=== PATIENT | female | born 1955 | race Caucasian/White ===

== ENCOUNTER 2020-05-21 15:40 | Outpatient (CLI) | payer OTHER, SELFPAY ==
--- NOTE | ~2020-05-21 | XR_ITS ---
XR foot LT min 3V DATE: 05/21/2020 16:09 INDICATION: Injury, metatarsal pain TECHNIQUE: 4 views COMPARISON: None FINDINGS: There is plantar enthesopathy and mild posterior calcaneal enthesopathy. There is hallux valgus and bunion deformity. There is osteoarthritis at the second metatarsophalangeal joint. No fracture or dislocation, periosteal reaction or bone destruction. 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
--- NOTE | ~2020-05-21 | XR_ITS ---
XR ankle LT 2V DATE: 05/21/2020 16:09 INDICATION: Injury TECHNIQUE: 2 views COMPARISON: None FINDINGS: No fracture or dislocation of the ankle or disruption of the ankle mortise. There is plant ar and minimal posterior calcaneal enthesopathy. IMPRESSION: No fracture or dislocation Plantar and minimal posterior calcaneal enthesopathy Reviewed, dictated and finalized at location A.
== END 2020-05-21 15:41 | disposition home or self-care (01) ==
LOC: ANHIMG 15:42
PROVIDERS: PCP Internal Medicine; Visit Provider Internal Medicine
DX: M20.12 Hallux valgus (acquired), left foot (principal); M19.072 Primary osteoarthritis, left ankle and foot; M77.32 Calcaneal spur, left foot
CPT/HCPCS: 73600; 73630

== ENCOUNTER 2021-03-25 16:52 | Emergency (ER) | payer OTHER, SELFPAY ==
--- NOTE | 2021-03-25 16:59 | ED.GENADULT ---
HPI - General Adult General Chief complaint: Urogenital-Female Stated complaint: uti Source: patient Mode of arrival: ambulatory Limitations: no limitations History of Present Illness HPI narrative: 65 y/o female. PMH includes: HTN, HLD, Current everyday cigarette smoker. Presents to [facility] today with acute complaints of dysuria, 'dark' urine, fever, chills, sweats, and RT Flank pain at home. Manifestations have been worsening in the past 24-48 hours. She arrives febrile with oral Temp of 101.4, as well as tachycardic. Client denies diffuse abdominal pain, pelvic pain, vaginal discharge. No history of nephrolithiasis. She is not diabetic. -She denies additional acute complaints of illness upon exam. Related Data Allergies Allergy/AdvReac Type Severity Reaction Status Date / Time No Known Allergies Allergy Verified 03/25/21 17:06 Review of Systems Review of Systems: Narrative: CONSTITUTIONAL: Positive fever, chills, sweats. EYES: Denies visual changes, redness, discharge. ENT: Denies rhinorrhea, congestion, sore throat, otalgia. CARDIOVASCULAR: Denies chest pain, palpitations, edema. RESPIRATORY: Denies dyspnea, wheezing, cough GASTROINTESTINAL: LLQ abdominal pain, nausea. No vomiting, diarrhea. GENITOURINARY: dysuria, dark urine. LT Flank pain. No hematuria, abnormal discharge SKIN: Denies rash or itching. MUSCULOSKELETAL: Denies acute back pain, joint pain, or myalgia. NEUROLOGIC: Denies numbness, or focal weakness. PSYCHIATRIC: Denies anxiety or depression. All systems reviewed & are unremarkable except as noted in HPI and below PMFSH Past Medical History Medical History Acid reflux delivery delivered 1986 Full term male 7lbs 11oz Gastrointestinal distress History of miscarriage 1977 Female Left kidney mass Surgical History Surgical History H/O dilation and curettage History of colposcopy [place] teeth removed Social History Social History Years smoked: 45 Alcohol intake: current Drinks per week: 8 Substance use: never Gender identity (if verbalized by the patient): Female Sexual Orientation (if Verbalized by the Patient): Straight or Heterosexual Exam Narrative: Exam Narrative: GENERAL: This is a well-nourished, well-developed patient, but appears to feel ill. HEAD: normocephalic, atraumatic. EYES: PERRL. Sclera clear/white. EARS: External ears normal. NOSE: External nose normal. THROAT: Mucous membranes moist. CARDIOVASCULAR: Regular rate and rhythm without murmurs, gallops, or rubs. RESPIRATORY: Clear to auscultation. Breath sounds equal bilaterally. No wheezes, rales, or rhonchi. GASTROINTESTINAL: Abdomen soft. Bowel sounds are active. No hepato-splenomegaly, or palpable masses. Positive LLQ & LT CVA tenderness, with guarding. SKIN: warm, intact with no suspicious lesions or rash, good texture and turgor. NEURO: awake, alert, and oriented to person, place and time. There were no obvious focal neurologic abnormalities. Course Transfer Transfered to: [place] ([facility] to ER ) Transportation: Other (Personal Vehicle: Pt choice) Transfer rationale: Suspect acute Pyelonephritis or other intra-abdominal infection source: Need for higher resources, to include laboratory studies, CT imaging, ect. Accepting physician: MD Pankaj Lyles Medical Decision Making [facility] Narrative Medical decision making narrative: -Febrile, tachycardic, but remains normotensive. -Urine Dipstick with positive Nitrites, 3+ Leukocytes. -Suspect acute pyelonephritis, or possibly other intra-abdominal infectious sources. -This patient requires resources that are not available here at [facility] (CT, CHEM 12, IV therapies, ect), and will be transferred to [facility] ER for this reason. -Case reviewed with provider
[2021-03-25 17:00] VITALS: BP 136/89; PULSE 106; RESP 18; TEMP 38.6; O2SAT 97
[2021-03-25 17:33] VITALS: TEMP 38.6
[2021-03-25] MEDS: ACETAMINOPHEN 500 MG TABLET 1000 MG PO (17:33)
== END 2021-03-25 17:45 | disposition short-term general hospital (02) ==
PROVIDERS: Emergency Provider Nurse Practitioner Adult Health; PCP Internal Medicine
DX: R50.9 Fever, unspecified (principal); R10.32 Left lower quadrant pain; N10 Acute pyelonephritis; K21.9 Gastro-esophageal reflux disease without esophagitis; E78.5 Hyperlipidemia, unspecified; I10 Essential (primary) hypertension; F17.210 Nicotine dependence, cigarettes, uncomplicated
CPT/HCPCS: 81003; 99213; A9270; G0463

== ENCOUNTER 2021-03-25 17:54 | Emergency (ER) | payer OTHER, SELFPAY ==
[2021-03-25 18:23] VITALS: BP 144/84; PULSE 99; RESP 18; TEMP 38; O2SAT 100
[2021-03-25 18:38] LABS: Basophils Absolute Auto 0.1 K/mm3 (0.0-0.1); Basophils Percent Auto 0.5 % (0.2-1.2); Eosinophils Absolute Auto 0.2 K/mm3 (0-0.3); Eosinophils Percent Auto 1.3 % (0-4.4); Hematocrit 40.9 % (37.0-47.0); Hemoglobin 13.4 g/dL (12.0-15.0); Immature Granulocyte Absolute 0.08 K/mm3 (0.00-0.031); Immature Granulocyte Percent A 0.6 % (0-0.5); Immature Platelet Fraction Pct 2.7 % (0.9-11.2); Lymphocytes Absolute Auto 1.02 K/mm3 (0.9-3.2); Lymphocytes Percent Auto 7.9 % (18.3-44.2); Mean Corpuscular HGB Conc 32.8 g/dl (32-36); Mean Corpuscular Hemoglobin 31.8 pg (26-34); Mean Corpuscular Volume 96.9 fl (80-100); Monocytes Absolute Auto 0.4 K/mm3 (0.1-0.6); Monocytes Percent Auto 2.7 % (2.6-8.5); Neutrophils Absolute Auto 11.2 K/mm3 (1.3-6.7); Red Blood Count 4.22 M/mm3 (4.2-5.4); Red Cell Distribution Width 14.1 % (11.5-14.5); White Blood Count 12.9 K/mm3 (4.5-10.0)
[2021-03-25 18:46] LABS: Alanine Aminotransferase 21 U/L (4-35); Albumin Level 4.1 g/dL (3.5-5.1); Alkaline Phosphatase 84 U/L (38-126); Anion Gap 8 mmol/L (8-16); Aspartate Amino Transferase 24 U/L (14-36); Bilirubin,Total 0.9 mg/dL (0.2-1.3); Blood Urea Nitrogen 27 mg/dL (7-17); Calcium 9.1 mg/dL (8.4-10.2); Carbon Dioxide 27 mmol/L (22-30); Chloride 104 mmol/L (98-107); Estimated CRCL calculation 47 ml/min; Estimated Glomerular Filt Rate 41; Glucose 105 mg/dL (65-105); Lipase 49 U/L (23-300); Potassium 4.6 mmol/L (3.4-5.0); Sodium 139 mmol/L (137-145)
[2021-03-25 19:07] LABS: Add Urine Microscopic? YES; Appearance Urine Cloudy (Clear); Bacteria Urine 4+ /hpf; Bilirubin Urine Negative (Negative); Blood Urine 2+ (Negative); Color Urine Yellow (Yellow); Glucose Urine UA Negative (Negative); Ketones Urine Negative (Negative); Leukocyte Esterase Ur 3+ LEU/UL (Negative); Mucus Urine Rare /lpf; Nitrate Urine Negative (Negative); Protein Urine 2+ mg/dL (Negative); Specific Grav Ur 1.021 (1.001-1.035); Squamous Epithelial Cell Urine Few /hpf (Few); Urobilinogen Urine Negative mg/dL (<2.0); WBC Urine >75 /hpf
--- NOTE | 2021-03-25 19:54 | ED.GENADULT ---
HPI - General Adult General Chief complaint: Back Pain/Injury Stated complaint: poss pyelonephritis, from urgent care Time Seen by Provider: 03/25/21 19:34 Source: patient History of Present Illness HPI narrative: Patient is a 65 y/o female complaining of left back pain starting yesterday. She describes her pain as a dull ache and rates it as 5/10. Her pain radiates to lower abdomen. She took Tylenol, which provides some relief. She also has some fever and chills. She has no vomiting or dysuria. Related Data Allergies Allergy/AdvReac Type Severity Reaction Status Date / Time No Known Allergies Allergy Verified 03/25/21 17:06 Review of Systems Constitutional: Constitutional: Reports chills, Reports fever(s), Denies headache(s) and Denies weakness Eyes: Eyes: Denies blurry vision ENT: Denies headache(s) and Denies neck pain Cardiovascular: Cardiovascular: Denies chest pain and Denies dyspnea Respiratory: Respiratory: Denies cough and Denies dyspnea Gastrointestinal: Gastrointestinal: Denies abdominal pain, Denies diarrhea, Denies nausea and Denies vomiting Genitourinary: Genitourinary: Denies hematuria and Denies dysuria Musculoskeletal: Musculoskeletal: Reports back pain and Denies neck pain Neurologic: Denies headache(s) and Denies weakness PMFSH Past Medical History Medical History Acid reflux delivery delivered 1986 Full term male 7lbs 11oz Gastrointestinal distress History of miscarriage 1977 Female Left kidney mass Surgical History Surgical History H/O dilation and curettage History of colposcopy [place] teeth removed Social History Social History Years smoked: 45 Alcohol intake: current Drinks per week: 8 Substance use: never Gender identity (if verbalized by the patient): Female Exam Const: General: no acute distress and well developed Orientation/consciousness: oriented to person, oriented to place, oriented to time and patient oriented x3 HENMT: Head: normocephalic Ears: external ears normal General nose exam: Normal external nose present Eyes: General: appearance normal, both eyes and all related structures Conjunctivae: conjunctivae normal Neck: Neck: normal visual inspection and full ROM Chest: Chest palpation & inspection: normal inspection of the chest and no tenderness Resp: Effort & Inspection: normal respiratory effort Auscultation: clear to auscultation bilaterally Cardio: Rate: regular rate Rhythm: regular rhythm GI: GI Palp: No abdominal tenderness and Yes Soft to palpation Skin: General skin exam: normal color and turgor normal Neuro: General: oriented to person, oriented to place, oriented to time and patient oriented x3 Cognition (Neuro): normal cognition Extrem: General: normal to inspection, full ROM and no pedal edema Psych: Appearance: grossly normal Mental Status: mental status grossly normal Affect: normal affect Course Reevaluation(s) Reevaluation #1: Offered patient possible admission for IV antibiotics. However, patient declined and preferred to be discharged. Date: 03/25/21 Vital Signs Vital signs: Vital Signs Temperature 38.0 C H 03/25/21 18:23 Pulse Rate 99 03/25/21 18:23 Respiratory Rate 18 03/25/21 18:23 Blood Pressure 144/84 H 03/25/21 18:23 Pulse Oximetry 100 03/25/21 18:23 Temperature 37.2 C 03/25/21 21:07 Pulse Rate 98 03/25/21 21:07 Respiratory Rate 18 03/25/21 21:07 Blood Pressure 148/80 H 03/25/21 21:07 Pulse Oximetry 100 03/25/21 21:07 Medical Decision Making Vital Signs Vital Signs: Vital Signs Temperature 38.0 C H 03/25/21 18:23 Pulse Rate 99 03/25/21 18:23 Respiratory Rate 18 03/25/21 18:23 Blood Pressure 144/84 H 03/25/21 18:23 Pulse Oximetry 100 03/25/21 18:23 Temperature 37.2 C
[2021-03-25 20:10] LABS: Lactic Acid Reflex 0.8 mmol/L (0.7-2.1)
[2021-03-25] MEDS: SODIUM CHLORIDE 0.9% IV 1,000 ML 999 ML IV CONT (20:37)
[2021-03-25 21:07] VITALS: BP 148/80; PULSE 98; RESP 18; TEMP 37.2; O2SAT 100
== END 2021-03-25 21:08 | disposition home or self-care (01) ==
PROVIDERS: Family Medicine; Emergency Provider Emergency Medicine; PCP Internal Medicine
DX: N12 Tubulo-interstitial nephritis, not specified as acute or chronic (principal); K21.9 Gastro-esophageal reflux disease without esophagitis
CPT/HCPCS: 36415; 80053; 81001; 83605; 83690; 85025; 85055; 87040; 87077; 87086; 87088; 87186; 96365; 99284; J0696; J7030

== ENCOUNTER 2021-06-16 15:21 | Outpatient (CLI) | payer OTHER, SELFPAY ==
--- NOTE | ~2021-06-16 | CT_ITS ---
EXAMINATION: CT lung screening DATE: 06/16/2021 15:38 INDICATION: Personal history of tobacco dependence, current smoker with 45 pack year history TECHNIQUE: Computed tomography (CT) of the chest was performed without intravenous contrast. The dose -length product (DLP) was 134.73 mGy-cm. 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 COMPARISON: 06/10/2018 FINDINGS: Again noted are multiple stable noncalcified pulmonary nodules with upper lobe predominance measuring up to 5 mm. Calcified pulmonary nodules and calcified bilateral hilar lymph nodes are cons istent with old granulomatous disease. No new pulmonary nodules are identified. The lungs are free of acute opacities. There is no pleural effusion or pneumothorax. No pathologically enlarged thoracic l ymph nodes are identified. The heart size is normal. Calcified coronary artery atherosclerosis is not ed. There is moderate lumbar spondylosis. There is a 9 mm cyst of the liver. Scarring is noted in the upper pole of the right kidney. IMPRESSION: 1. Lung-RADS category 2: Benign appearance or behavior. Continue annual screening with noncontrast lo w-dose chest CT in 12 months. Reviewed, dictated and finalized at location B. IMPRESSION: 1. Lung-RADS category 2: Benign appearance or behavior. Continue annual screeni ng with noncontrast low-dose chest CT in 12 months.
== END 2021-06-16 15:22 | disposition home or self-care (01) ==
PROVIDERS: PCP Internal Medicine; Visit Provider Internal Medicine
DX: Z12.2 Encounter for screening for malignant neoplasm of respiratory organs (principal); Z87.891 Personal history of nicotine dependence
CPT/HCPCS: 71271

== ENCOUNTER 2022-11-30 07:42 | Outpatient (CLI) | payer OTHER, SELFPAY ==
--- NOTE | ~2022-11-30 | CT_ITS ---
EXAMINATION: CT lung screening DATE: 11/30/2022 08:06 INDICATION: Lung cancer screening. TECHNIQUE: Computed tomography (CT) of the chest was performed without intravenous contrast. The dose -length product was 125.81 mGy-cm. Automated exposure control and iterative reconstruction technique were employed. COMPARISON: CT dated 06/16/2021 and 11/09/2016 FINDINGS: No mediastinal or hilar lymphadenopathy. There are calcified pulmonary nodules and mediasti nal/hilar lymph nodes, consistent with chronic granulomatous disease. There are calcified granulomas of the spleen. No significant pleural or pericardial effusion. There is right renal atrophy. There is a nonobstructing right renal stone. Mild emphysema. No significant change to scattered bilateral pul monary nodules with upper lobe predominance. No new pulmonary nodules or masses. Nodules measure 3 mm or less. There is moderate thoracolumbar spondylosis. No focal lytic or blastic lesions. IMPRESSION: 1. Lung-RADS category 2: Benign appearance or behavior. Continue annual screening with noncontrast lo w-dose chest CT in 12 months. Reviewed, dictated and finalized at location L. [employer] IMPRESSION: 1. Lung-RADS category 2: Benign appearance or behavior. Continue annual screeni ng with noncontrast low-dose chest CT in 12 months.
== END 2022-11-30 07:43 | disposition home or self-care (01) ==
PROVIDERS: PCP Internal Medicine; Visit Provider Nurse Practitioner Family
DX: Z12.2 Encounter for screening for malignant neoplasm of respiratory organs (principal); F17.210 Nicotine dependence, cigarettes, uncomplicated
CPT/HCPCS: 71271

== ENCOUNTER 2023-01-20 08:29 | Outpatient (CLI) | payer MEDICARE, SELFPAY ==
--- NOTE | ~2023-01-20 | MM_ITS ---
EXAMINATION: MM screening [facility] BI w [facility] HISTORY: Screening mammogram TECHNIQUE: Craniocaudal and mediolateral oblique 3-D tomosynthesis images were obtained and synthetic 2-D images were generated. CAD analysis was submitted and interpreted. COMPARISON: 10/21/2017 and 01/08/2014 BREAST PARENCHYMAL COMPOSITION:There are scattered areas of fibroglandular density. FINDINGS: Benign appearing mass in the inner right subareolar region is present, minimally increased in size since 2018. No suspicious mass, calcification, or architectural distortion are identified in either breast to suggest malignancy. There has been no suspicious interval change. IMPRESSION: No mammographic evidence of malignancy. Recommend routine screening mammography in one year. BI-RADS Category 2: Benign finding(s). Reviewed, dictated and finalized at location .
== END 2023-01-20 08:30 | disposition home or self-care (01) ==
PROVIDERS: PCP Internal Medicine; Visit Provider Nurse Practitioner Family
DX: Z12.31 Encounter for screening mammogram for malignant neoplasm of breast (principal)
CPT/HCPCS: 77063; 77067

== ENCOUNTER 2023-10-20 08:49 | Outpatient (CLI) | payer MEDICARE, SELFPAY ==
--- NOTE | ~2023-10-20 | DEXA_ITS ---
Bone Density Report Name: DAVIDSON ARAGON Age: 67 Sex: Female Ethnicity: White Date of : 1955 Indication: osteopenia; height loss; postmenopausal Referring Provider: CJ VERDE Study: Bone densitometry was performed. Exam Date: October 20, 2023 Accession number: [id number] Bone Density: Region BMD T-score Z-score Classification AP Spine(L1-L4) 0.962 -0.8 1.1 Normal Femoral Neck (Left) 0.652 -1.8 -0.2 Osteopenia Total Hip (Left) 0.754 -1.5 -0.3 Osteopenia Femoral Neck (Right) 0.556 -2.6 -1.1 Osteoporosis Total Hip (Right) 0.708 -1.9 -0.6 Osteopenia Total Hip Mean 0.731 -1.7 -0.5 Osteopenia World Health Organization criteria for BMD impression classify patients as: Normal (T-score at or above -1.0), Osteopenia (T-score between -1.0 and -2.5), or Osteoporosis (T-score at or below -2.5). 10-year Fracture Risk: FRAX not reported because: Some T-score for Spine Total or Hip Total or Femoral Neck at or below -2.5 Previous Exams: Region Exam Age BMD T-score BMD Change BMD Change Date g/cm2 vs Baseline vs Previous AP Spine (L1-L4) 10/20/2023 67 0.962 -0.8 0.053 (5.8%)* 0.053 (5.8%)* 10/21/2017 61 0.910 -1.2 Total Hip(Left) 10/20/2023 67 0.754 -1.5 -0.024 (-3.0%) -0.024 (-3.0%) 10/21/2017 61 0.778 -1.3 Total Hip(Right) 10/20/2023 67 0.708 -1.9 -0.008 (-1.1%) -0.008 (-1.1%) 10/21/2017 61 0.716 -1.8 *Denotes significance at 95% confidence level, LSC for AP Spine = 0.022 g/cm2, LSC for Total Hip = 0.027 g/cm2 Clinical Information Provided by Patient: Smokes Patient maximum height was 68 Menopause Age: 42 No regular weight bearing exercise Drinks caffeinated beverages Onset of menses at age 14 Number of children 1 Impression: The patient has osteoporosis, based on the Right Femoral Neck T-score. The patient has risk factors, including: smoking. No significant bone loss was observed. Discussion: INCREASED RISK OF FRACTURE. BONE DENSITY IS UNDESIRABLY LOW AT ONE OR MORE SKELETAL SITES, CONSISTENT WITH POSTMENOPAUSAL OSTEOPOROSIS. This patient's lowest T-score meets the World Health Organization's (WHO) criteria for osteoporosis at one or more sites (T-score -2.5 or below). In untreated patients, the risk of osteoporotic fracture increases approximately two-fold for each 1.0 SD decrease in T-score. Low bone density is not the only risk factor for fracture; also consider factors such as patient's age, frail
== END 2023-10-20 08:50 | disposition home or self-care (01) ==
PROVIDERS: PCP Nurse Practitioner Family; Visit Provider Nurse Practitioner Family
DX: M81.0 Age-related osteoporosis without current pathological fracture (principal); Z13.820 Encounter for screening for osteoporosis; M85.852 Other specified disorders of bone density and structure, left thigh; M85.851 Other specified disorders of bone density and structure, right thigh
CPT/HCPCS: 77080

== ENCOUNTER 2023-11-29 10:47 | Outpatient (RCR) | payer MEDICARE, SELFPAY ==
--- NOTE | 2023-11-29 11:50 | OPREHPOC ---
Outpatient Therapy Plan of Care This is a Multidisciplinary Plan of Care that may contain components documented by all disciplines (PT, OT, and ST.) PT Problem 1 PT Problem #1 Knowledge Deficit PT Goal 1 Goal 1* indep with HEP 2* good safety awareness PT Problem 2 PT Problem #2 Impaired Vestibular Syste PT Goal 1 Goal improve mobility and safety; pt perform without any vestibular symptoms: 1* roll over in bed 2* supine to sit transfer 3* Dizziness Handicap Index score of 4% limitation in activity
--- NOTE | 2023-11-29 11:50 | PTOPEVAL1 ---
Assessment and note entered by Keely Estes, PT Evaluation Information Assessment Status Evaluation Diagnosis dizziness, giddiness Onset Oct 29, 2023 Subjective Information onset of dizziness with getting up out of bed one morning; took about 20 minutes to feel better and get up out of bed, nauseated; have meclazine, only took a few times, not sure it helped; symptoms: waves of motion even though I am still; decrease symptoms; ease with few seconds of holding still; Increase symptoms: with rolling over in bed; lie back at dentist chair Reported Pain Level Pain Score 0: Self Report Assessment PT Clinical Summary Kateryna has the diagnosis of dizziness/ BPPV. She reports a history of dizziness in the past and constant ringing in her ears. She has not had her hearing checked. Symptoms increase with supine to sit and rolling over in bed. Self assessment with Dizziness Handicap Index is 20% limitation. With the evaluation: she has BPPV of anterior/ posterior canal with [place] Bernardo Copiah testing to R. With Eply maneuver/canalith repositioning her BPPV was cleared. Education provided for vestibular system, post Eply maneuver, BPPV and Evan Josue for self clearing. Skilled PT services are indicated for further vestibular/ BPPV treatment and education to decrease her symptoms and improve her mobility. Plan of Care Interventions Neuro Re-education,Patient Education, Therapeutic Activities,Therapeutic Exercise,Self- Care/Home Management PT Services Indicated Yes Treatment Frequency and 1-2x/week for 8 visits Duration These treatments will address the objective and functional deficits as defined above. The patient will be advanced safely and appropriately in order for the patient to progress towards his/her prior level of function. Additional exercises will be introduced and as well as a comprehensive home exercise program upon discharge, if needed, ?to ensure carryover of functional gains achieved in the clinic. This treatment plan has been reviewed and agreement upon by the patient.
--- NOTE | 2023-12-30 15:28 | PTOPDC ---
Assessment and note entered by Keely Estes, PT Discharge Information Assessment Status Discharge - Pt Not Present Diagnosis dizziness, giddiness Onset Oct 29, 2023 Assessment PT Clinical Summary Kateryna received the PT evaluation and did not return for any further treatment. Discharge PT services. The goals were not addressed. Plan of Care PT Services Indicated No
== END 2024-01-02 08:18 | disposition home or self-care (01) ==
LOC: ANHPT 10:47
PROVIDERS: PCP Nurse Practitioner Family; Visit Provider Nurse Practitioner Family
DX: H81.11 Benign paroxysmal vertigo, right ear (principal)
CPT/HCPCS: 95992; 97161; 97530

== ENCOUNTER 2023-12-27 10:11 | Outpatient (CLI) | payer MEDICARE, SELFPAY ==
--- NOTE | 2023-12-29 15:41 | WPDHOLTEREM ---
Holter/Event Monitor Holter/Event Monitor Date of procedure: 12/27/23 Holter/Event Procedure: 48 Hr Holter Monitor Indications: Palpitations Conclusion: 1. 48 hour holter monitor on 12/27/23. 2. Underlying rhythm is sinus rhythm. HR range 60-111 bpm; average HR 77 bpm. 3. There are 21 premature supraventricular complexes and 2 supraventricular couplets. NO supraventricular tachycardia. 4. There are 303 premature ventricular complexes, 2 ventricular couplets, 1 ventricular triplet and 17 ventricular trigeminy. No ventricular tachycardia. 5. No sinoatrial or atrioventricular blocks. No significant pauses greater than seconds. 6. No symptoms available for correlation.
== END 2023-12-27 10:12 | disposition home or self-care (01) ==
PROVIDERS: PCP Nurse Practitioner Family; Visit Provider Nurse Practitioner Family
DX: R00.2 Palpitations (principal)
CPT/HCPCS: 93225; 93226

== ENCOUNTER 2024-11-27 07:47 | Outpatient (CLI) | payer MEDICARE, SELFPAY ==
--- OUTSIDE RECORDS SUMMARY | 2024-11-27 07:53 | XMS_ITS | Clinical Summary ---
Author Organization [facility] Address [address] [place] [address] Phone Care Team Providers Care Outside Food Server Name Role Phone Unavailable Primary Care Provider Unavailabl e Social History Tobacco Use Types Packs/Day Years Used Date Smoking Tobacco: Never Assessed Comments Unknown Sex and Gender Information Value Date Recorded Sex Assigned at Not on file Legal Sex Female 7:39 PM [employer] Gender Identity Not on file Sexual Orientation Not on file Plan of Treatment Health Maintenance Due Date Last Done Comments DEXA Bone Density 1955 Hepatitis C Virus (HCV) Screening 1955 TdaP Immunization 1955 Colonoscopy 2002 Colorectal Cancer Screening 2002 Cologuard 12/10/2007 Immunochemical Fecal Occult Blood 12/10/2007 Mammogram 12/10/2007 Pneumococcal Immunization (5 0+ years) (1 of 1 - PCV) 12/10/2007 Zoster Immunization (1 of 2) 12/10/2007 Influenza Immunization (#1) 2024 SARS-COV-2 Immunization ( season) 2024 07/17/2021, 01/13/2021, 12/16/2020 Respiratory Syncytial Virus (RSV) Immunization (Adult) (1 - 1-dose 75+ series) 2032 Hepatitis B Immunization Aged Out No longer eligible based on patient's age to complete this topic Meningococcal Immunization (ACWY) Aged Out No longer eligible b ased on patient's age to complete this topic Rotavirus Immunization Aged Out No lo nger eligible based on patient's age to complete this topic
--- NOTE | 2024-12-18 19:16 | WPDSLEEPSTUD ---
Sleep Study Date of Study: 11/27/24 Ordering Provider: Jessica Soto APRN Interpreting Physician: Karen Treviño DO Sleep Study Type: CPAP Titration Height: 1.7 m Weight: 72.575 kg Body Mass Index: 25.0 Neck Circumference (inches): 15 [place]: 3 Reason for Sleep Study Previously diagnosed severe sleep apnea in 2008. Re-evaluation of sleep apnea after weight loss Sleep History The patient is a 68-year-old female who had severe sleep apnea diagnosed 15 years ago. The patient had a sleep study ordered for re-evaluation of sleep apnea after significant weight loss. The patient frequently snores, and she snores loud enough that others complain. She rarely has trouble sleeping when she has a cold. She denies waking up gasping for air throughout the night. She frequently has breathing problems at night observed by herself or others. She rarely sweats excessively at night. She rarely has heart palpitations or irregular heartbeats throughout the night. She rarely falls asleep during the day. She denies falling asleep while driving. She denies cataplexy and sleep paralysis. She rarely has trouble at school or work due to sleepiness. She rarely experiences vivid dreamlike scenes upon awakening or falling asleep. She denies feeling afraid of going to sleep. She rarely has nightmares. She occasionally remembers her dreams. She rarely has thoughts racing through her mind. She rarely feels sad or depressed. She occasionally has anxiety. She constantly has muscular tension. She frequently notices parts of her body jerk. She frequently kicks during the night. She frequently has crawling and aching feelings in her legs and frequently has leg pain during the night. She rarely grinds her teeth during sleep and rarely awakens with morning jaw pain. She rarely is bothered by pain during the day and is rarely awakened by pain during the night. She frequently wakes up feeling sick in the morning. She is occasionally awakened by sore or aching muscles. She occasionally wakes up with pain in the neck, spine, and other joints. She goes to bed at 8:30 p.m. on both weekdays and weekends. It takes her 5 to 15 minutes to fall asleep. She wakes up 2 to 3 times throughout the night to urinate and get a drink. She is able to fall back asleep within 5 to 10 minutes. She wakes up at 6:30 a.m. on both weekdays and weekends. She typically gets 6 to 8 hours of sleep per night. She stays in bed for 10 to 15 minutes after waking up in the morning. She currently lives with her . She denies consuming any caffeinated beverages within 2 hours of bedtime. She denies engaging in physical exercise before bedtime. She will read and watch television before falling asleep. She denies taking naps in the afternoon or the evening. She consumes 2 to 3 caffeinated beverages per day at least twice per week. She smokes 4 cigarettes per day. She consumes alcoholic beverages during the day. She denies recreational drug use. [facility] Past Medical History Medical History History of miscarriage 1977 Female delivery delivered 1986 Full term male 7lbs 11oz Acid reflux Gastrointestinal distress Left kidney mass Surgical History Surgical History H/O dilation and curettage [place] teeth removed History of colposcopy Social History Social History Smoking packs per day: 0.25 Smoking cigarettes per day: 5.0 Years smoked: 45 Smoking pack-years: 11.25 Smoking status: Current every day smoker Tobacco type: cigarettes Second hand tobacco smoke exposure: Yes Alcohol intake: current Drinks per week: 10 Substance use: never Substance use type: does not use Do You Feel Safe in your Home?: Yes Lack of Transportation: No Lack of Food: Never True Current Housing: I Have Housing Concerned About Future Housing: No Difficulty Paying Gas/Electric Bills: No Difficulty Paying for Meds: No Currently Unemployed: No Education: High School Diploma/GED Difficulty w/ Childcare or Family Care: No Living arrangements: with family Occupation/Education: occupation Gender identity (if verbalized by the patient): Female Sexual Orientation (if Verbalized by the Patient): Straight or Heterosexual Spiritual care concerns: No Agree to blood products: Yes Medications Home Medications ?Medication ?Instructions ?Recorded ?Confirmed ?Type omeprazole 20 mg capsule,delayed 20 mg PO DAILY PRN 01/28/23 09/12/24 History release fluticasone propionate 50 2 spray intranasal DAILY #16 mL 11/17/23 09/12/24 Rx mcg/actuation nasal spray,suspension (Flonase Allergy Relief) loratadine 10 mg tablet (Claritin) 10 mg PO DAILY #30 tabs 12/06/23 09/12/24 Rx atorvastatin 10 mg tablet See Rx Instructions .Route 09/12/24 09/12/24 Rx .COMPLEX #90 tabs bupropion HCl 300 mg 24 hr tablet, 300 mg PO QAM #90 tabs 09/12/24 09/12/24 Rx extended release semaglutide 2 mg/dose (8 mg/3 mL) 2 mg (0.75 mL) subcut WEEKLY #9 mL 09/12/24 09/12/24 Rx subcutaneous pen injector (Ozempic) zolpidem 10 mg tablet (Ambien) 10 mg PO QHS #1 tablet 11/27/24 Rx Sleep Procedure A full night CPAP Titration using the [employer] multi-channel system recorded the standard physiologic parameters including EEG, EOG, submentalis EMG, anterior tibialis EMG, EKG, body position, nasal and oral airflow using nasal pressure sensor and thermistor.? Respiratory parameters of chest and abdominal movements were recorded with Respiratory Inductance Plethysmography belts. Oxygen saturation was recorded by pulse oximetry. Video monitoring was also performed. Sleep stages, periodic limb movements, and EEG arousals were scored in 30 second epochs according to the criteria of the AASM Scoring Manual. The Apnea-Hypopnea Index was calculated using CMS guidelines for definition of hypopnea with 4% O2 desaturations while scoring respiratory events. Sleep Architecture The total recording time was 516.3 minutes.? The total sleep time was 438.5 minutes. Sleep latency was 24.9 minutes. REM latency was 329.5 minutes. Sleep efficiency was 84.9%. The patient had 45 awakenings for an awakening index of 6.2. Wake after Sleep Onset time was 52.5 minutes. The patient spent 37.5 minutes, 8.6% of total sleep time in Stage N1. The patient spent 358.0 minutes, 81.6% in Stage N2. The patient spent 5.5 minutes, 1.3% in Stage N3. The patient spent 37.5 minutes, 8.6% in Stage REM. Respiratory Analysis The patient had 18 hypopneas and 1 obstructive apnea for an overall Apnea Hypopnea Index of 2.6 events per hour. The REM Apnea Hypopnea Index was 0. The NREM Apnea Hypopnea Index was 2.8. The patient had a Central Apnea Hypopnea Index of 0. There was no evidence of Kristofer-Moreland Respirations. The patient was started on CPAP 5 cm H2O and titrated to CPAP 14 cm H2O due to hypopneas. The patient was able to fall asleep starting on CPAP 5 cm H2O. The patient was able to achieve REM sleep starting on CPAP 14 cm H2O. The patient was able to achieve a residual AHI less than 5 with both NREM and REM sleep on the final pressure setting. On CPAP 14 cm H2O, the patient spent 179.5 minutes in NREM and 37.5 minutes in REM with 1 hypopnea, resulting in an AHI of 0.3. The patient had a sleep efficiency of 88.4% on this pressure setting. Arousals There were 318 total arousals for an arousal index of 43.5. There were 98 spontaneous arousals for an index of 13.4. ?There were 104 arousals due to respiratory events for an index of 14.2. There were 89 arousals due to periodic limb movements for an index of 12.2.? There were 34 arousals due to isolated limb movements for an index of 4.7. Periodic Limb Movements The patient had 67 isolated limb movements with an index of 9.2. The patient had 346 periodic limb movements with index of 47.3, which is elevated (normal < 15). Patient had a total of 413 limb movements with a total limb movement index of 56.5. Oximetry Data The patient had an average oxygen saturation of 96.6% in sleep with a minimum oxygen saturation of 87.0% and a maximum oxygen saturation of 100.0%. The patient had 18 oxygen desaturations that were 4% or greater resulting in an Oxygen Desaturation Index of 2.5.? The patient spent 0.6 minutes, 0.1% of total sleep time with an oxygen saturation below 88%. Snoring Profile Moderate to loud snoring was present in the beginning of the study. The snoring resolved once the patient was titrated to 13 cm H2O. Cardiac Profile The EKG showed normal sinus rhythm. No arrhythmias or PVCs were seen. The patient had an average pulse rate of 69.7 bpm with a minimum pulse rate of 63.0 bpm and a maximum pulse rate of 83.0 bpm. ? EEG Profile No signs of seizure activity seen. Assessment and Plan Assessment and Plan (1) RISA (obstructive sleep apnea): Code(s): G47.33 - Obstructive sleep apnea (adult) (pediatric) Status: Acute Assessment and Plan: The patient was started on CPAP 5 cm H2O and titrated to CPAP 14 cm H2O due to hypopneas. The patient's sleep apnea resolved on the final pressure setting with a high sleep efficiency. I recommend that the patient's pressure settings be changed to CPAP 14 cm H2O using a size medium Resmed AirTouch F20 full face mask. This should be used with all episodes of sleep.? Compliance should be reviewed within 31-90 days of starting therapy for usage greater than 4 hours per night greater than 70% of the nights. The patient should be asked about symptoms such as?excessive daytime sleepiness, quality of sleep, decreased nocturia, increased?mental functioning such as memory, mood, and concentration. The patient had a significant number of limb movements during the study with the majority being periodic in nature. The patient's sleep history is consistent with Restless Leg Syndrome. I recommend that the patient have a serum ferritin drawn for evaluation of iron deficiency anemia. If the patient has a serum ferritin less than 75 ng/mL, I recommend starting a daily iron supplement and a Vitamin C supplement for better absorption. If the serum ferritin is greater than 75 ng/mL, I recommend starting a dopamine agonist and titrating the dose until symptoms resolve. There are nonpharmacological methods to treat limb movements including daily exercise, stretching calf muscles before bed, avoiding excessive amounts of caffeine and alcohol, vitamin B supplementation, magnesium lotion massaged into legs before bed, and use of a weighted blanket. Data The data obtained during this sleep study is adequate for interpretation. Certification This sleep study has been reviewed by a board certified sleep medicine physician.
[2024-12-24 10:37] VITALS: BMI 25.0
== END 2024-11-28 06:44 | disposition home or self-care (01) ==
LOC: ANHCSM 07:48
PROVIDERS: PCP Nurse Practitioner Family; Visit Provider Nurse Practitioner Family
DX: G47.33 Obstructive sleep apnea (adult) (pediatric) (principal)
CPT/HCPCS: 95811

== ENCOUNTER 2025-03-26 10:07 | Outpatient (CLI) | payer MEDICARE, SELFPAY ==
--- NOTE | ~2025-03-26 | CT_ITS ---
CT Scan of the Chest without Contrast: Clinical Indication: Lung cancer screening, nicotine dependence Technique: Contiguous sections were acquired throughout the chest without intravenous contrast. Dose reduction technique was used on this scan by utilizing automated exposure control and iterative recon struction technique. The dose-length product (DLP) was 81.29 mGy-cm. COMPARISON: 11/30/2022 Findings: There is no evidence of any significant mediastinal, hilar or axillary lymphadenopathy. The mediastin al soft tissues appear normal. There is no evidence of pleural or pericardial effusion. The lungs are clear, aside from calcified granulomas. Images through the upper abdomen reveal no abnormalities. Impression: Lung RADS 2: Benign appearance. 12 month follow-up screening CT advised. Reviewed, dictated and finalized at location . Impression: Lung RADS 2: Benign appearance. 12 month follow-up screening CT advised.
--- OUTSIDE RECORDS SUMMARY | 2025-03-26 11:20 | XMS_ITS | Clinical Summary ---
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
== END 2025-03-26 10:08 | disposition home or self-care (01) ==
PROVIDERS: PCP Nurse Practitioner Family; Visit Provider Nurse Practitioner Family
DX: Z12.2 Encounter for screening for malignant neoplasm of respiratory organs (principal); Z87.891 Personal history of nicotine dependence
CPT/HCPCS: 71271

== ENCOUNTER 2025-03-27 07:54 | Outpatient (CLI) | payer MEDICARE, SELFPAY ==
--- OUTSIDE RECORDS SUMMARY | 2025-03-27 07:57 | XMS_ITS | Clinical Summary ---
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
== END 2025-03-27 07:55 | disposition home or self-care (01) ==
LOC: ANHAUDIO 07:54
PROVIDERS: PCP Nurse Practitioner Family; Visit Provider Nurse Practitioner Family
DX: H90.3 Sensorineural hearing loss, bilateral (principal)
CPT/HCPCS: 92557; 92567

== ENCOUNTER 2025-09-10 09:23 | Outpatient (CLI) | payer MEDICARE, SELFPAY ==
--- NOTE | ~2025-09-10 | MM_ITS ---
EXAMINATION: MM screening zoraida BI w warner HISTORY: Screening. TECHNIQUE: Craniocaudal and mediolateral oblique 3-D tomosynthesis images were obtained and synthetic 2-D images were generated. CAD analysis was submitted and interpreted. COMPARISON: 2022 BREAST PARENCHYMAL COMPOSITION: Dense: The breasts are heterogeneously dense FINDINGS: There are multiple, bilateral, circumscribed nodules/masses, a benign finding. No suspicious masses are seen. There are no suspicious calcifications. No unexplained architectural distortion is seen. There are no skin or nipple abnormalities identified. There is no adenopathy seen on the images submitted. IMPRESSION: No mammographic evidence to suggest malignancy is seen. The patient may return to screening mammography as per ACR guidelines. BI-RADS 2 - Benign. Reviewed, dictated and finalized at location B. [place] SALES CLERK
--- OUTSIDE RECORDS SUMMARY | 2025-09-10 09:59 | XMS_ITS | Clinical Summary ---
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 Gender Identity Not on file Sexual Orientation Not on file Plan of Treatment Health Maintenance Due Date Last Done Comments Hepatitis C Virus (HCV) Screening 1955 TdaP Immunization 1955 Cologuard 2002 Colonoscopy 2002 Colorectal Cancer Screening 2002 Immunochemical Fecal Occult Blood 2002 Pneumococcal Immunization (5 0+ years) (1 of 1 - PCV) 12/10/2007 Zoster Immunization (1 of 2) 12/10/2007 Influenza Immunization (#1) 2025 SARS-COV-2 Immunization ( season) 2025 07/17/2021, 01/13/2021, 12/16/2020 Respiratory Syncytial Virus (RSV) Immunization (Adult) (1 - 1-dose 75+ series) 2032 Hepatitis B Immunization Aged Out No longer eligible based on patient's age to complete this topic Human Papillomavirus (HPV) Immunization Aged Out No longer eligible b ased on patient's age to complete this topic Meningococcal Immunization (ACWY) Aged Out No longer eligible b ased on patient's age to complete this topic Rotavirus Immunization Aged Out No lo nger eligible based on patient's age to complete this topic
== END 2025-09-10 09:24 | disposition home or self-care (01) ==
LOC: ANHFOHIMG 09:24
PROVIDERS: PCP Nurse Practitioner Family; Visit Provider Nurse Practitioner Family
DX: Z12.31 Encounter for screening mammogram for malignant neoplasm of breast (principal)
CPT/HCPCS: 77063; 77067